=== PATIENT | male | born 1950 | race Caucasian/White ===

== ENCOUNTER 2020-07-30 07:16 | Day surgery (SDC) | payer MEDICARE, BC ==
[2020-07-23 15:21] LABS: BASOPHILS % (AUTO) 0.4 % (0-1); EOSINOPHILS % (AUTO) 0.4 % (0-6); LYMPHOCYTES # (AUTO) 1.2 X10'3 (1.1-4.8); LYMPHOCYTES % (AUTO) 11.3 % (21-51); MEAN CORPUSCULAR HEMOGLOBIN 29.6 PG (27.0-31.0); MEAN CORPUSCULAR HGB CONC 33.2 g/dL (33.0-36.5); MEAN CORPUSCULAR VOLUME 89.1 FL (78-98); MEAN PLATELET VOLUME 7.7 FL (7.4-10.4); MONOCYTES # (AUTO) 0.6 X10'3 (0-0.9); MONOCYTES % (AUTO) 5.5 % (2-12); NEUTROPHILS # (AUTO) 8.6 X10'3 (1.8-7.7); NEUTROPHILS % (AUTO) 82.4 % (42-75); PRE OP HEMATOCRIT 42.2 % (42.0-52.0); PRE OP PLATELET COUNT 222 X10'3 (140-440); RED BLOOD COUNT 4.74 X10'6 (4.70-6.10); RED CELL DISTRIBUTION WIDTH 15.3 % (11.5-14.5)
[2020-07-23 15:34] LABS: HEMOGLOBIN A1C 6.8 % (4.5-6.2)
[2020-07-23 15:35] LABS: PRE OP PROTIME 10.4 SECONDS (9.0-12.0)
[2020-07-23 15:37] LABS: ALBUMIN 3.9 G/DL (3.4-5.0); ALBUMIN/GLOBULIN RATIO 1.3 (1.1-1.5); ALKALINE PHOSPHATASE 70 IU/L (46-116); BLOOD UREA NITROGEN 22 MG/DL (7-18); BUN/CREATININE RATIO 13.7 (5.4-32.0); CALCIUM 9.4 MG/DL (8.5-10.1); CHLORIDE 106 MMOL/L (99-107); CREATININE 1.61 MG/DL (0.60-1.10); PRE OP ALT 56 U/L (30-65); PRE OP ANION GAP 6 (8-16); PRE OP AST 18 U/L (10-37); PRE OP BILIRUB, TOTAL 1.6 MG/DL (0.0-1.0); PRE OP GLUCOSE 127 MG/DL (70-104); PRE OP POTASSIUM 4.6 MMOL/L (3.4-5.1); PRE OP SODIUM 142 MMOL/L (135-145); TOTAL CARBON DIOXIDE 29.7 MMOL/L (24-32); TOTAL PROTEIN 6.9 G/DL (6.4-8.2); eGFR 43 ML/MIN
[2020-07-30] VITALS (18 sets, daily range): BP systolic 102–156; BP diastolic 55–102
[~2020-07-30] VITALS: Ht 177.8 cm; Wt 101.0 kg
[~2020-07-30 07:16] MED LIST: ASPI-611 PO; ATOR20TA66 PO; CHOL10006 PO; Cefazolin 2GM/100ML NS IVPB 100 ML IV ONE; DOCUMENT DATE & TIME OF BETA-BLOCKER PO ONE; HYDROmorphone 1 mg/ml syringe IV PRN; HYDROmorphone inj. 0.5 MG/0.5 ML DISP.SYRIN IV PRN; LORA-512 PO; METO200T49 PO; MULT-1085 PO; TELM80TA9 PO; WHEA98PO PO; acetaminophen 325mg tablet PO ONE; acetaminophen 325mg tablet PO PRN; bisacodyl 10mg suppository rectal RC PRN; celeCOXIB 100mg capsule PO ONE; diphenhydrAMINE 25mg capsule PO PRN; famotidine 20mg tablet PO ONE; gabapentin 300mg capsule PO ONE; loratadine 10mg tablet PO PRN; magnesium hydroxide 30ml (MOM) UD suspension PO PRN; metoclopramide 5 mg/ml inj IV ONE; ondansetron/PF 4mg/2ml inj IV PRN; oxyCODONE SR 10mg (sust. release) tab -2 tabs (20mg) PO ONE; oxyCODONE/APAP 10/325mg tablet PO PRN; ringers solution, lacted 1,000 ML IV SCH; tranexamic acid 1gm/0.7% sal. 100 ML IV ONE; vancomycin 1,500 MG in NS 300ml IV soln IV ONE
[2020-07-30] MEDS: ascorbic acid 500mg tablet PO SCH ×2 (08:00→20:51)
[2020-07-30] MEDS: multivitamins, therapeutics tablet PO SCH (08:00)
[2020-07-30] MEDS: gabapentin 300mg capsule PO SCH ×3 (08:00→20:51)
[2020-07-30] MEDS: aspirin 325mg tablet PO SCH (08:30)
[2020-07-30] MEDS ORDERED: fentaNYL/PF 50MCG/1 ML 2ML syringe ONE (11:00)
[2020-07-30] MEDS ORDERED: BUPIVAcaine 0.5% inj/PF 60 ML ONE (11:00)
[2020-07-30] MEDS ORDERED: MIDAZolam 1mg/ml 10ml vial ONE (11:00)
[2020-07-30] MEDS ORDERED: epiNEPHrine 1 mg/ml inj ONE (11:01)
[2020-07-30] MEDS ORDERED: cloNIDine hcl/PF 100mcg/ml inj ONE (11:01)
[2020-07-30] MEDS ORDERED: ketorolac trometh. 30mg/ml inj. ONE (11:01)
[2020-07-30] MEDS ORDERED: vancomycin 1,000mg inj ONE (11:16)
[2020-07-30] MEDS ORDERED: meperidine/PF 25mg/ml syringe IV PRN ×3 (11:55)
[2020-07-30] MEDS ORDERED: ringers solution, lacted 1,000 ML IV SCH (11:55)
[2020-07-30] MEDS ORDERED: morphine 4 MG/ML inj SYRINge IV PRN (11:55)
[2020-07-30] MEDS ORDERED: ROPIVAcaine 0.2% (10 MG/5 ML) BOLUS INJECTION ADDCANAL PRN (11:55)
[2020-07-30] MEDS ORDERED: ondansetron/PF 4mg/2ml inj IV PRN (11:55)
[2020-07-30] MEDS ORDERED: morphine 2 MG/ML inj. syringe IV PRN (11:55)
[2020-07-30] MEDS ORDERED: proCHLORperazine 10 MG/2 ml inj IV PRN (11:55)
[2020-07-30] MEDS ORDERED: ROPIVAcaine 0.5% (5mg/ml) 30ml vial ONE (12:16)
[2020-07-30] MEDS: ROPIVAcaine 0.2%/PF PUMP/bolus 550 ML ADDCANAL SCH ×2 (13:00→19:52)
--- NOTE | 2020-07-30 13:10 | NUR ---
PATIENT ARRIVED TO RECOVERY VIA BED WITH DR LIU, ANESTHESIA REPORT GIVEN, PATIENT AWAKE, DENIES PAIN, V/S WNL, NEUROVASCULAR CHECKS INTACT- + PULSES BLE, 18G PIV RUE , DRESSING TO LEFT KNEE CDI W/ COLD POWDER PACK AND RAUL DRSG W/ SCDS ON, ON-Q CATHETER PRESENT, SENSATION T-10
--- NOTE | 2020-07-30 14:30 | NUR ---
PATIENT A&OX4, DENIES PAIN, V/S WNL, NEUROVASCULAR CHECKS INTACT-SENSATION RETURNING TO RIGHT LOWER EXTREMITY-ABLE TO MOVE TOES, ABLE TO MOVE TOES ON LEFT SIDE BUT BLOCK STILL WORKING TO KEEP LEFT LEG SENSATION BLOCKED, + PULSES TO BLE, DRESSING TO LEFT KNEE W/ RAUL DRSG AND COLD POWDER PACK, ON-Q ATTACHED AND RUNNING AT 4ML/HR - PT EDUCATED ON USE, SCDS ON. PATIENT TAKEN TO RM 4015B WITH ALL BELONGINGS AND HOOKED UP TO MONITORS IN ROOM AND REPORT GIVEN TO RESIN REMOVER YASMINE WHO HAS TAKEN OVER PATIENT CARE. BED LOW AND LOCKED, CALL LIGHT PRESENT AND VSS.
[2020-07-30] MEDS: potassium cl 20mEq in 1/2 NS 1,000 ML IV SCH ×3 (15:15→23:15)
[2020-07-30] MEDS ORDERED: tranexamic acid 1gm/0.7% sal. 100 ML IV ONE ×2 (17:00→20:00)
[2020-07-30] MEDS: oxyCODONE/APAP 10/325mg tablet PO PRN (20:52)
[2020-07-30] MEDS ORDERED: sennosides 8.6mg tablet PO SCH (21:00)
[2020-07-30] MEDS ORDERED: atorvastatin 20mg tablet PO SCH (21:00)
[2020-07-30] MEDS ORDERED: VANCOMYCIN 1,500MG inj. 1,500 MG in normal saline 500ml IV soln 300 ML IV SCH (22:00)
[2020-07-31] MEDS: Cefazolin 2GM/100ML NS IVPB 100 ML IV SCH ×2 (00:03→08:36)
[2020-07-31 01:57] VITALS: BP 139/76
[2020-07-31] MEDS: oxyCODONE/APAP 10/325mg tablet PO PRN (05:21)
--- NOTE | 2020-07-31 05:30 | NUR ---
anticipate patient getting to go home today - pt still has very minimal pain.
[2020-07-31 06:00] VITALS: BP 142/81
[2020-07-31 06:48] LABS: BASOPHILS % (AUTO) 0.2 % (0-1); EOSINOPHILS % (AUTO) 0 % (0-6); HEMATOCRIT 38.6 % (42.0-52.0); HEMOGLOBIN 12.6 g/dl (14.0-17.9); LYMPHOCYTES # (AUTO) 0.9 X10'3 (1.1-4.8); LYMPHOCYTES % (AUTO) 6.1 % (21-51); MEAN CORPUSCULAR HEMOGLOBIN 29.5 PG (27.0-31.0); MEAN CORPUSCULAR HGB CONC 32.8 g/dL (33.0-36.5); MEAN CORPUSCULAR VOLUME 90.2 FL (78-98); MEAN PLATELET VOLUME 8.6 FL (7.4-10.4); MONOCYTES # (AUTO) 0.6 X10'3 (0-0.9); MONOCYTES % (AUTO) 4.2 % (2-12); NEUTROPHILS % (AUTO) 89.5 % (42-75); PLATELET COUNT 198 X10'3 (140-440); RED BLOOD COUNT 4.28 X10'6 (4.70-6.10); RED CELL DISTRIBUTION WIDTH 15.3 % (11.5-14.5); WHITE BLOOD COUNT 14.5 X10'3 (4.5-11.0)
--- NOTE | 2020-07-31 06:51 | NUR ---
Patient in room ORTHO 4015. I have received report from Immanuel REYNA and had the opportunity to ask questions and assume patient care.
[2020-07-31 07:05] LABS: ANION GAP 11 (8-16); CHLORIDE 106 MMOL/L (99-107); POTASSIUM 4.7 MMOL/L (3.5-5.1); SODIUM 140 MMOL/L (135-145); TOTAL CARBON DIOXIDE 22.9 MMOL/L (24-32)
[2020-07-31] MEDS: potassium cl 20mEq in 1/2 NS 1,000 ML IV SCH ×2 (07:11→07:12)
[2020-07-31] MEDS ORDERED: metoprolol succinate 25mg (24-HOUR) SR. Tablet PO SCH (08:00)
[2020-07-31] MEDS ORDERED: losartan 50mg tablet PO SCH (08:00)
[2020-07-31 08:30] VITALS: BP 142/78
[2020-07-31] MEDS: aspirin 325mg tablet PO SCH (08:36)
[2020-07-31] MEDS: gabapentin 300mg capsule PO SCH ×2 (08:37→12:50)
[2020-07-31] MEDS: multivitamins, therapeutics tablet PO SCH (08:37)
[2020-07-31] MEDS: ascorbic acid 500mg tablet PO SCH (08:38)
[2020-07-31 10:00] VITALS: BP 144/77
[2020-07-31] MEDS ORDERED: gabapentin capsule PO (11:52)
--- NOTE | 2020-07-31 12:28 | NUR ---
Joint replacement consult: Pt seen by ELODIA for written/verbal high protein ed w/ RD contact information provided. Pt declines additional proteins at this time reports appetite slightly lower than normal but good appetite at home without specific food preferences this AM. To provide initial assessment on above date. Addendum: 07/31/20 at [address] Amended: Links added.
--- NOTE | 2020-07-31 14:00 | NUR ---
Have been unable to process pt's d/c in computer system, system is locked up. pharmaceutical laboratory technician attempting to rectify. Pt and family aware. will continue to monitor.
--- NOTE | 2020-07-31 15:00 | NUR ---
Discharge paperwork is ready and reviewed with pt. Pt now waiting for /ride to return. Will continue to monitor.
--- NOTE | 2020-07-31 16:30 | NUR ---
Pt stable and appropriate for discharge. PIV d/c'd canula intact. Reviewed with pt all d/c instructions, meds, On-Q, RAUL dressing, with pt given opportunity to ask questions, answers provided and pt verbalizing understanding. Home meds returned to pt from Pharmacy. Pt to call surgeon with any questions, concerns or s/sx complications/infection or return to nearest ED. Pt escorted to front lobby by staff member via w/c with all personal belongings, accompanied by family. Driven home in private vehicle driven by family member.
[2020-07-31] MEDS ORDERED: celeCOXIB 100mg capsule PO SCH (20:00)
== END 2020-07-31 16:40 | disposition home or self-care (01) ==
LOC: PAS 07:16 → ORTHO 4S 16:09 → PAS 07-31 16:40
PROVIDERS: ATTEND Orthopaedic Surgery
DX: M17.12 Unilateral primary osteoarthritis, left knee (principal); E11.22 Type 2 diabetes mellitus with diabetic chronic kidney disease; I12.9 Hypertensive chronic kidney disease with stage 1 through stage 4 chronic kidney disease, or unspecified chronic kidney disease; N18.4 Chronic kidney disease, stage 4 (severe); G89.18 Other acute postprocedural pain; E66.9 Obesity, unspecified; Z68.31 Body mass index [BMI] 31.0-31.9, adult; Z87.891 Personal history of nicotine dependence; Z72.89 Other problems related to lifestyle; Z98.890 Other specified postprocedural states; Z88.8 Allergy status to other drugs, medicaments and biological substances; Z79.899 Other long term (current) drug therapy
CPT/HCPCS: 27447; 36415; 64448; 73560; 76937; 80051; 80053; 82948; 83036; 85025; 85610; 85730; 86885; 86900; 86901; 87081; 97110; 97116; 97162; 97530; C1713; C1776; J0171; J0690; J0735; J1885; J2250; J2765; J2795; J3010; J3370; J7040; J7120; A4215; A7000; G0378; J3480

== ENCOUNTER 2020-08-05 15:14 | Emergency (ER) | payer MEDICARE, BC ==
[~2020-08-05] VITALS: Ht 175.3 cm; Wt 102.3 kg
[~2020-08-05 15:14] MED LIST changes: -ASPI-611 PO; -Cefazolin 2GM/100ML NS IVPB 100 ML IV ONE; -DOCUMENT DATE & TIME OF BETA-BLOCKER PO ONE; -HYDROmorphone 1 mg/ml syringe IV PRN; -HYDROmorphone inj. 0.5 MG/0.5 ML DISP.SYRIN IV PRN; -acetaminophen 325mg tablet PO ONE; -acetaminophen 325mg tablet PO PRN; -bisacodyl 10mg suppository rectal RC PRN; -celeCOXIB 100mg capsule PO ONE; -diphenhydrAMINE 25mg capsule PO PRN; -famotidine 20mg tablet PO ONE; -gabapentin 300mg capsule PO ONE; -loratadine 10mg tablet PO PRN; -magnesium hydroxide 30ml (MOM) UD suspension PO PRN; -metoclopramide 5 mg/ml inj IV ONE; -ondansetron/PF 4mg/2ml inj IV PRN; -oxyCODONE SR 10mg (sust. release) tab -2 tabs (20mg) PO ONE; -oxyCODONE/APAP 10/325mg tablet PO PRN; -ringers solution, lacted 1,000 ML IV SCH; -tranexamic acid 1gm/0.7% sal. 100 ML IV ONE; -vancomycin 1,500 MG in NS 300ml IV soln IV ONE
[2020-08-05 16:53] LABS: BASOPHILS % (AUTO) 0.1 % (0-1); EOSINOPHILS # (AUTO) 0.1 X10'3 (0-0.9); EOSINOPHILS % (AUTO) 0.5 % (0-6); HEMATOCRIT 38.2 % (42.0-52.0); HEMOGLOBIN 12.5 g/dl (14.0-17.9); LYMPHOCYTES # (AUTO) 1.2 X10'3 (1.1-4.8); LYMPHOCYTES % (AUTO) 10.5 % (21-51); MEAN CORPUSCULAR HEMOGLOBIN 29.2 PG (27.0-31.0); MEAN CORPUSCULAR HGB CONC 32.7 g/dL (33.0-36.5); MEAN CORPUSCULAR VOLUME 89.2 FL (78-98); MEAN PLATELET VOLUME 8.3 FL (7.4-10.4); MONOCYTES # (AUTO) 0.5 X10'3 (0-0.9); MONOCYTES % (AUTO) 4.4 % (2-12); NEUTROPHILS # (AUTO) 9.5 X10'3 (1.8-7.7); NEUTROPHILS % (AUTO) 84.5 % (42-75); PLATELET COUNT 192 X10'3 (140-440); RED BLOOD COUNT 4.28 X10'6 (4.70-6.10); RED CELL DISTRIBUTION WIDTH 15.2 % (11.5-14.5); WHITE BLOOD COUNT 11.2 X10'3 (4.5-11.0)
[2020-08-05 17:04] LABS: ALANINE AMINOTRANSFERASE 197 U/L (12-78); ALBUMIN 3.2 G/DL (3.4-5.0); ALBUMIN/GLOBULIN RATIO 1.1 (1.1-1.5); ALKALINE PHOSPHATASE 69 IU/L (46-116); ANION GAP 11 (8-16); ASPARTATE AMINO TRANSFERASE 37 U/L (10-37); BILIRUBIN,TOTAL 1.2 MG/DL (0.1-1.0); BLOOD UREA NITROGEN 37 MG/DL (7-18); BUN/CREATININE RATIO 29.4 (5.4-32.0); CALCIUM 8.6 MG/DL (8.5-10.1); CHLORIDE 104 MMOL/L (99-107); CREATININE 1.26 MG/DL (0.60-1.10); GLUCOSE 125 MG/DL (70-104); POTASSIUM 4.1 MMOL/L (3.5-5.1); SODIUM 142 MMOL/L (135-145); TOTAL CARBON DIOXIDE 27.1 MMOL/L (24-32); eGFR 56 ML/MIN
[2020-08-05 18:46] VITALS: BP 165/91
== END 2020-08-05 18:53 | disposition home or self-care (01) ==
LOC: ER 15:15
DX: S80.12XA Contusion of left lower leg, initial encounter (principal); L76.82 Other postprocedural complications of skin and subcutaneous tissue; R60.0 Localized edema; Z72.89 Other problems related to lifestyle; Z79.899 Other long term (current) drug therapy; Z88.8 Allergy status to other drugs, medicaments and biological substances; X58.XXXA Exposure to other specified factors, initial encounter; Y93.9 Activity, unspecified; Y92.89 Other specified places as the place of occurrence of the external cause; Y99.8 Other external cause status
CPT/HCPCS: 36415; 71045; 80053; 83880; 84484; 85025; 93005; 93971; 99285

== ENCOUNTER 2021-10-07 09:03 | Inpatient (IN) | payer MEDICARE, BC ==
[~2021-10-07] VITALS: Ht 175.3 cm; Wt 99.3 kg
[2021-10-07 11:16] LABS: BASOPHILS % (AUTO) 0.5 % (0-1); EOSINOPHILS % (AUTO) 0.1 % (0-6); HEMATOCRIT 38.8 % (42.0-52.0); HEMOGLOBIN 12.6 g/dl (14.0-17.9); LYMPHOCYTES # (AUTO) 0.5 X10'3 (1.1-4.8); LYMPHOCYTES % (AUTO) 6.5 % (21-51); MEAN CORPUSCULAR HEMOGLOBIN 27.1 PG (27.0-31.0); MEAN CORPUSCULAR HGB CONC 32.6 g/dL (33.0-36.5); MEAN CORPUSCULAR VOLUME 83.2 FL (78-98); MEAN PLATELET VOLUME 8.2 FL (7.4-10.4); MONOCYTES # (AUTO) 0.3 X10'3 (0-0.9); MONOCYTES % (AUTO) 3.3 % (2-12); NEUTROPHILS # (AUTO) 6.9 X10'3 (1.8-7.7); NEUTROPHILS % (AUTO) 89.6 % (42-75); PLATELET COUNT 63 X10'3 (140-440); RED BLOOD COUNT 4.66 X10'6 (4.70-6.10); RED CELL DISTRIBUTION WIDTH 16.7 % (11.5-14.5); WHITE BLOOD COUNT 7.7 X10'3 (4.5-11.0)
[2021-10-07 11:33] LABS: UA COLLECTION TYPE VOIDED
[2021-10-07 11:34] LABS: CLARITY,URINE CLEAR (Clear); COLOR,URINE YELLOW (Yellow); GLUCOSE, URINE >=1000 mg/dl (Neg); KETONES,URINE NEGATIVE (Neg); LEUKOCYTE ESTERASE ,URINE NEGATIVE (Neg); NITRITES, URINE NEGATIVE (Neg); OCCULT BLOOD,URINE MODERATE (Neg); PROTEIN,URINE 30 mg/dl (Neg); UROBILINOGEN,URINE 0.2 E.U/dL (0.2-1.0)
[2021-10-07 11:39] LABS: ALANINE AMINOTRANSFERASE 57 U/L (12-78); ALBUMIN 3.1 G/DL (3.4-5.0); ALBUMIN/GLOBULIN RATIO 1.4 (1.1-1.5); ANION GAP 6 (8-16); ASPARTATE AMINO TRANSFERASE 21 U/L (10-37); BILIRUBIN,TOTAL 3.4 MG/DL (0.1-1.0); BLOOD UREA NITROGEN 27 MG/DL (7-18); BUN/CREATININE RATIO 16.2 (5.4-32.0); CALCIUM 7.9 MG/DL (8.5-10.1); CHLORIDE 100 MMOL/L (99-107); CREATININE 1.67 MG/DL (0.60-1.10); GLUCOSE 384 MG/DL (70-104); SODIUM 143 MMOL/L (135-145); TOTAL CARBON DIOXIDE 37.1 MMOL/L (24-32); TOTAL PROTEIN 5.3 G/DL (6.4-8.2); eGFR 41 ML/MIN
[2021-10-07 11:40] LABS: ALKALINE PHOSPHATASE 111 IU/L (46-116)
[2021-10-07 11:41] LABS: POTASSIUM 2.2 MMOL/L (3.5-5.1)
[2021-10-07 11:41] LABS: BACTERIA,URINE NONE SEEN /HPF (Neg); RBC,URINE 0-2 /HPF (0-2); SQUAMOUS EPITHELIAL CELL,UR FEW /LPF (FEW); WBC,URINE 0-4 /HPF (0-4)
--- NOTE | 2021-10-07 12:13 | NUR ---
Spoke with Norman GARZA regarding patients potassium level of 2.2, Norman GARZA gave verbal order for potassium effervescent 40 mEq once now. Isela TREJO aware of new order.
[2021-10-07] MEDS ORDERED: POTASSIUM BICARB 20meq eff tab 20 MEQ TABLET.EFF PO ONE (12:15)
[2021-10-07] MEDS ORDERED: potassium Cl 10 mEq/100mL bag IV ONE (13:05)
--- NOTE | 2021-10-07 13:34 | NUR ---
PT NOTED TO BE IN AFIB/FLUTTER RATE IN 140S. EDMD ALISHA MADE AWARE PULTZ WAS UNAVAILABLE
[2021-10-07] MEDS ORDERED: diltiazem 5mg/ml 5ml inj. IV ONE (13:45)
[2021-10-07] MEDS ORDERED: sotalol HCl 40mg (1/2 tablet) PO STA (13:46)
[2021-10-07] MEDS ORDERED: acetaminophen 325mg tablet PO PRN (14:00)
[2021-10-07] MEDS ORDERED: ondansetron/PF 4mg/2ml inj IV PRN (14:00)
[2021-10-07] MEDS ORDERED: magnesium Cl slow-release 64mg tablet PO PRN (14:00)
[2021-10-07] MEDS ORDERED: PERFLUTREN PROTEIN-A MICROSPHR (Optison) 0.22 MG/ML 3ML VIAL IV ONE (14:00)
[2021-10-07] MEDS ORDERED: magnesium 4gm in 100ml NS 100 ML IV PRN (14:00)
[2021-10-07] MEDS ORDERED: magnesium 2GM in 50ml NS 50 ML IV PRN (14:00)
[2021-10-07] MEDS ORDERED: POTASSIUM BICARB 20meq eff tab 20 MEQ TABLET.EFF PO PRN (14:00)
[2021-10-07] MEDS ORDERED: magnesium hydroxide 30ml (MOM) UD suspension PO PRN (14:00)
[2021-10-07] MEDS ORDERED: mag hydrox/Alum hydrox/simeth 30ml oral suspension PO PRN (14:00)
[2021-10-07 14:16] LABS: MAGNESIUM 2.2 MG/DL (1.5-2.4)
[2021-10-07] MEDS ORDERED: METO-539 PO (16:32)
[2021-10-07] MEDS ORDERED: ATOR20TA66 PO (16:32)
[2021-10-07] MEDS ORDERED: POTA10TA37 PO (16:32)
[2021-10-07] MEDS ORDERED: DOXA4TAB3 PO (16:32)
[2021-10-07] MEDS ORDERED: FURO-150 PO (16:32)
[2021-10-07 17:08] LABS: POTASSIUM 2.2 MMOL/L (3.5-5.1)
[2021-10-07] MEDS: potassium CL 10mEq/100ml bag 100 ML IV PRN ×2 (17:41→19:32)
[2021-10-07] MEDS: POTASSIUM BICARB 20meq eff tab 20 MEQ TABLET.EFF PO PRN ×2 (17:41→22:01)
--- NOTE | 2021-10-07 17:44 | NUR ---
DEMETRIS AT BEDSIDE. INFORMED OF HTN AND POTASSIUM STILL LOW AT 2.2. ADIVSED TO GIVE BOTH ORAL AND IV REPLACEMENT AND TO GET A MAGNESIUM LEVEL. BOTH K REPLACEMENT GIVEN ADVISED AND MG ORDERED
[2021-10-07 17:52] LABS: MAGNESIUM 2.1 MG/DL (1.5-2.4)
[2021-10-07] MEDS: furosemide 10 MG/1 ML 10ml inj IV SCH (18:00)
--- NOTE | 2021-10-07 18:48 | NUR ---
Received report from AXEL Haddad. Awaiting patient arrival to the floor.
--- NOTE | 2021-10-07 19:05 | NUR ---
Patient arrived to the floor via wheelchair. Placed in room 3016B. Patient alert and oriented x4 on room air, in no apparent distress. Call light and items of frequent use.
[2021-10-07 19:10] VITALS: BP 185/98
[2021-10-07] MEDS: hydrALAZINE 20mg/ml inj. IV PRN (19:31)
[2021-10-07] MEDS: docusate sod 100mg capsule PO SCH (19:37)
[2021-10-07] MEDS: K and/or MAG REPLACEMENT MC SCH (19:38)
[2021-10-07 20:42] VITALS: BP 152/83
[2021-10-07 22:00] VITALS: BP 154/87
[2021-10-08] VITALS (7 sets, daily range): BP systolic 147–178; BP diastolic 79–100
[2021-10-08] MEDS: POTASSIUM BICARB 20meq eff tab 20 MEQ TABLET.EFF PO PRN ×2 (02:37→19:55)
--- NOTE | 2021-10-08 06:00 | NUR ---
Patient in room PCU 3016. I have received report from Susanna REYNA and had the opportunity to ask questions and assume patient care.
--- NOTE | 2021-10-08 06:20 | NUR ---
Problems reprioritized. Patient report given, questions answered & plan of care reviewed with AXEL Garzon.
[2021-10-08 06:49] LABS: BASOPHILS % (AUTO) 0.1 % (0-1); EOSINOPHILS % (AUTO) 0.1 % (0-6); LYMPHOCYTES # (AUTO) 0.9 X10'3 (1.1-4.8); MEAN CORPUSCULAR HEMOGLOBIN 27.4 PG (27.0-31.0); MEAN CORPUSCULAR HGB CONC 33.2 g/dL (33.0-36.5); MEAN CORPUSCULAR VOLUME 82.5 FL (78-98); MEAN PLATELET VOLUME 8.2 FL (7.4-10.4); MONOCYTES # (AUTO) 0.3 X10'3 (0-0.9); MONOCYTES % (AUTO) 4.5 % (2-12); NEUTROPHILS # (AUTO) 5.3 X10'3 (1.8-7.7); NEUTROPHILS % (AUTO) 81.3 % (42-75); PLATELET COUNT 56 X10'3 (140-440); RED BLOOD COUNT 4.36 X10'6 (4.70-6.10); RED CELL DISTRIBUTION WIDTH 17.2 % (11.5-14.5); WHITE BLOOD COUNT 6.5 X10'3 (4.5-11.0)
[2021-10-08 07:00] LABS: ALBUMIN 2.6 G/DL (3.4-5.0); ANION GAP 4 (8-16); BLOOD UREA NITROGEN 25 MG/DL (7-18); BUN/CREATININE RATIO 16.1 (5.4-32.0); CALCIUM 7.8 MG/DL (8.5-10.1); CHLORIDE 104 MMOL/L (99-107); CREATININE 1.55 MG/DL (0.60-1.10); GLUCOSE 247 MG/DL (70-104); MAGNESIUM 2.1 MG/DL (1.5-2.4); SODIUM 146 MMOL/L (135-145); TOTAL CARBON DIOXIDE 38.4 MMOL/L (24-32); eGFR 44 ML/MIN
[2021-10-08 07:12] LABS: POTASSIUM 2.6 MMOL/L (3.5-5.1)
--- NOTE | 2021-10-08 07:25 | NUR ---
Paged Dr. Neri regarding pts critical K level of 2.6 PAGER ID: [phone] MESSAGE: [id number], Ashley Gonzalez. Pts K+ is 2.6. They have mad multiple replacements and its still low. Do you want to continue the protocol or would you like to add scheduled? Ryann [facility] [id number]
[2021-10-08] MEDS: furosemide 10 MG/1 ML 10ml inj IV SCH ×2 (07:57→20:32)
[2021-10-08] MEDS: potassium Cl 20 mEq SR tablet PO SCH ×2 (07:58→20:33)
[2021-10-08] MEDS: potassium CL 10mEq/100ml bag 100 ML IV PRN ×5 (07:59→15:26)
[2021-10-08] MEDS: docusate sod 100mg capsule PO SCH ×2 (07:59→20:33)
[2021-10-08] MEDS: K and/or MAG REPLACEMENT MC SCH ×2 (08:00→20:00)
[2021-10-08 11:37] LABS: HEMOGLOBIN A1C 7.6 % (4.5-6.2)
--- NOTE | 2021-10-08 18:20 | NUR ---
Patient in room PCU 3016. I have received report from Ryann and had the opportunity to ask questions and assume patient care.
--- NOTE | 2021-10-08 18:29 | NUR ---
Problems reprioritized. Patient report given, questions answered & plan of care reviewed with Sandra Irvin, patient stable at transfer of care.
[2021-10-08] MEDS: hydrALAZINE 20mg/ml inj. IV PRN (20:33)
--- NOTE | 2021-10-08 20:51 | NUR ---
Called Dr. Greer regarding BS of 315. Order received for [facility] BS checks with Humalog coverage only.
[2021-10-08] MEDS ORDERED: dextrose 50%-water 50ml dispensing syringe IV PRN ×2 (22:15)
[2021-10-08] MEDS ORDERED: DEXTROSE 15 GM of carb/4 tabs (each vial/BOTTLE has 4 tablets) PO PRN ×2 (22:15)
[2021-10-09 02:00] VITALS: BP 179/91
[2021-10-09] MEDS: hydrALAZINE 20mg/ml inj. IV PRN (03:16)
[2021-10-09] MEDS: POTASSIUM BICARB 20meq eff tab 20 MEQ TABLET.EFF PO PRN (05:31)
[2021-10-09 06:50] LABS: BASOPHILS % (AUTO) 0.1 % (0-1); EOSINOPHILS % (AUTO) 0.1 % (0-6); HEMATOCRIT 39.6 % (42.0-52.0); HEMOGLOBIN 13.2 g/dl (14.0-17.9); LYMPHOCYTES # (AUTO) 0.9 X10'3 (1.1-4.8); LYMPHOCYTES % (AUTO) 16.3 % (21-51); MEAN CORPUSCULAR HEMOGLOBIN 27.3 PG (27.0-31.0); MEAN CORPUSCULAR HGB CONC 33.3 g/dL (33.0-36.5); MEAN CORPUSCULAR VOLUME 82.2 FL (78-98); MEAN PLATELET VOLUME 8.4 FL (7.4-10.4); MONOCYTES # (AUTO) 0.3 X10'3 (0-0.9); MONOCYTES % (AUTO) 4.9 % (2-12); NEUTROPHILS # (AUTO) 4.5 X10'3 (1.8-7.7); NEUTROPHILS % (AUTO) 78.6 % (42-75); PLATELET COUNT 58 X10'3 (140-440); RED BLOOD COUNT 4.82 X10'6 (4.70-6.10); RED CELL DISTRIBUTION WIDTH 17.3 % (11.5-14.5); WHITE BLOOD COUNT 5.8 X10'3 (4.5-11.0)
[2021-10-09 06:53] VITALS: BP 163/93
[2021-10-09 06:53] LABS: ALANINE AMINOTRANSFERASE 54 U/L (12-78); ALBUMIN 2.9 G/DL (3.4-5.0); ALBUMIN/GLOBULIN RATIO 1.5 (1.1-1.5); ALKALINE PHOSPHATASE 110 IU/L (46-116); ANION GAP -2 (8-16); ASPARTATE AMINO TRANSFERASE 22 U/L (10-37); BLOOD UREA NITROGEN 25 MG/DL (7-18); BUN/CREATININE RATIO 15.1 (5.4-32.0); CHLORIDE 105 MMOL/L (99-107); CREATININE 1.66 MG/DL (0.60-1.10); GLUCOSE 219 MG/DL (70-104); POTASSIUM 3.6 MMOL/L (3.5-5.1); SODIUM 141 MMOL/L (135-145); TOTAL PROTEIN 4.9 G/DL (6.4-8.2); eGFR 41 ML/MIN
[2021-10-09 07:41] LABS: BILIRUBIN,TOTAL 3.5 MG/DL (0.1-1.0)
[2021-10-09] MEDS: docusate sod 100mg capsule PO SCH ×2 (08:00→19:54)
[2021-10-09] MEDS: K and/or MAG REPLACEMENT MC SCH ×2 (08:00→20:01)
--- NOTE | 2021-10-09 09:42 | NUR ---
Noted pt with A1c 7.6%. Per EMR this admit pt with prediabetes however per two previous visits pt documented with T2DM. Written DM education with RD contact information placed in patient's chart. Will remain available. Addendum: 10/09/21 at [address] Amended: Links added.
[2021-10-09] MEDS: potassium Cl 20 mEq SR tablet PO SCH ×3 (09:48→19:54)
[2021-10-09] MEDS: furosemide 10 MG/1 ML 10ml inj IV SCH ×2 (09:48→17:45)
--- NOTE | 2021-10-09 10:32 | NUR ---
Extensive diabetic education by primary RN given to pt. on DM dx. Pt. would like to stop going to walk-in clinic in [place] and would like to find a PCP here in [place]. Spoke with CM for resources and she states she will speak to him and refer him to [facility].
[2021-10-09 10:57] VITALS: BP 125/45
[2021-10-09] MEDS: insulin Lispro (HumaLOG) vial - multi-dose SQ SCH ×2 (13:41→19:58)
--- NOTE | 2021-10-09 15:06 | NUR ---
RN TC: Pt A1C 7.6% and though prior admits say hx T2DM in EMR pt/ actually not aware of DM until this admit and have been notified by MD. Pt/ seen by RD at bedside for thorough written/verbal DM ed w/ RD contact information provided. RD encouraged pt/ to contact dietitian's office if further questions/concerns. Pt admit DX acute CHF exacerbation, new onset afib, HTN, hyperglycemia, transaminitis, and severe hypokalemia receiving replacement per EMR. Glu 207mg/dl this afternoon down from 315mg/dl on admit started on humalog per EMR; RD d/w RN regarding glycemic protocol if physician agreeable. PO ~100% avg initial carb controlled meals meeting estimated needs. No documented BM though day two of admit per EMR. Will continue to monitor for further nutrition intervention needs this admit. Rec: 1. continue carb controlled diet 2. routine bowel care 3. weekly wts Addendum: 10/09/21 at [address] Amended: Links added.
[2021-10-09 15:31] LABS: HBSAG SCREEN Negative (Negative); HEP A AB, IGM Negative (Negative); HEPATITIS C ANTIBODY <0.1 s/co ratio (0.0-0.9)
[2021-10-09 15:43] VITALS: BP 149/80
[2021-10-09 18:00] VITALS: BP 166/97
--- NOTE | 2021-10-09 18:15 | NUR ---
Patient in room PCU 3016. I have received report from Aysha and had the opportunity to ask questions and assume patient care.
--- NOTE | 2021-10-09 18:26 | NUR ---
GAVE REPORT TO FER REYNA
[2021-10-09] MEDS: doxazosin mesylate 2mg tablet PO SCH (19:54)
[2021-10-09 22:00] VITALS: BP 159/96
[2021-10-10 02:00] VITALS: BP 165/93
[2021-10-10 06:00] VITALS: BP 157/91
--- NOTE | 2021-10-10 06:10 | NUR ---
Problems reprioritized. Patient report given, questions answered & plan of care reviewed with Jane.
[2021-10-10 07:02] LABS: BASOPHILS % (AUTO) 0.2 % (0-1); EOSINOPHILS % (AUTO) 0.1 % (0-6); HEMATOCRIT 38.1 % (42.0-52.0); HEMOGLOBIN 12.9 g/dl (14.0-17.9); LYMPHOCYTES # (AUTO) 0.9 X10'3 (1.1-4.8); LYMPHOCYTES % (AUTO) 16.6 % (21-51); MEAN CORPUSCULAR HEMOGLOBIN 28.1 PG (27.0-31.0); MEAN CORPUSCULAR HGB CONC 33.9 g/dL (33.0-36.5); MEAN CORPUSCULAR VOLUME 82.9 FL (78-98); MEAN PLATELET VOLUME 8.2 FL (7.4-10.4); MONOCYTES # (AUTO) 0.3 X10'3 (0-0.9); MONOCYTES % (AUTO) 4.7 % (2-12); NEUTROPHILS # (AUTO) 4.1 X10'3 (1.8-7.7); NEUTROPHILS % (AUTO) 78.4 % (42-75); PLATELET COUNT 59 X10'3 (140-440); RED BLOOD COUNT 4.59 X10'6 (4.70-6.10); RED CELL DISTRIBUTION WIDTH 17.9 % (11.5-14.5); WHITE BLOOD COUNT 5.3 X10'3 (4.5-11.0)
[2021-10-10 07:05] LABS: ALBUMIN 2.8 G/DL (3.4-5.0); ANION GAP 5 (8-16); BLOOD UREA NITROGEN 29 MG/DL (7-18); BUN/CREATININE RATIO 17.1 (5.4-32.0); CALCIUM 7.9 MG/DL (8.5-10.1); CHLORIDE 105 MMOL/L (99-107); GLUCOSE 152 MG/DL (70-104); MAGNESIUM 1.9 MG/DL (1.5-2.4); SODIUM 145 MMOL/L (135-145); TOTAL CARBON DIOXIDE 35.1 MMOL/L (24-32); eGFR 40 ML/MIN
[2021-10-10] MEDS: metoprolol succinate 25mg (24-HOUR) SR. Tablet PO SCH (07:43)
[2021-10-10] MEDS: furosemide 10 MG/1 ML 10ml inj IV SCH ×2 (07:43→19:54)
[2021-10-10] MEDS: potassium Cl 20 mEq SR tablet PO SCH (07:44)
[2021-10-10] MEDS: docusate sod 100mg capsule PO SCH ×2 (08:00→19:39)
[2021-10-10] MEDS: K and/or MAG REPLACEMENT MC SCH ×2 (08:00→20:00)
[2021-10-10] MEDS ORDERED: potassium Cl 20 mEq SR tablet PO STA (08:47)
[2021-10-10] MEDS: insulin Lispro (HumaLOG) vial - multi-dose SQ SCH ×3 (09:15→19:31)
[2021-10-10 10:50] LABS: POTASSIUM 3.2 MMOL/L (3.5-5.1)
[2021-10-10 11:00] VITALS: BP 138/84
[2021-10-10 13:17] LABS: BILIRUBIN,DIRECT 0.4 MG/DL (0-0.3)
[2021-10-10 15:00] VITALS: BP 149/79
[2021-10-10 18:00] VITALS: BP 154/86
--- NOTE | 2021-10-10 18:30 | NUR ---
Patient in room PCU 3016. I have received report from JOHAN and had the opportunity to ask questions and assume patient care.
[2021-10-10] MEDS: K, MAG and/or Phos replacement - Verify level? MC SCH (19:50)
[2021-10-10] MEDS ORDERED: magnesium 2GM in 50ml NS 50 ML IV PRN (19:50)
[2021-10-10] MEDS ORDERED: magnesium 4gm in 100ml NS 100 ML IV PRN (19:50)
[2021-10-10] MEDS ORDERED: magnesium Cl slow-release 64mg tablet PO PRN (19:50)
[2021-10-10] MEDS ORDERED: potassium Cl 20 mEq SR tablet PO PRN (19:50)
[2021-10-10] MEDS: potassium Cl 20 mEq SR tablet PO PRN (20:01)
[2021-10-10] MEDS: doxazosin mesylate 2mg tablet PO SCH (21:29)
[2021-10-10 22:00] VITALS: BP 152/77
[2021-10-11] MEDS: potassium Cl 20 mEq SR tablet PO PRN (00:57)
[2021-10-11 02:00] VITALS: BP 143/87
[2021-10-11 06:22] LABS: BASOPHILS % (AUTO) 0.1 % (0-1); EOSINOPHILS % (AUTO) 0 % (0-6); HEMOGLOBIN 12.7 g/dl (14.0-17.9); LYMPHOCYTES # (AUTO) 0.7 X10'3 (1.1-4.8); LYMPHOCYTES % (AUTO) 9.7 % (21-51); MEAN CORPUSCULAR HEMOGLOBIN 27.7 PG (27.0-31.0); MEAN CORPUSCULAR HGB CONC 33.6 g/dL (33.0-36.5); MEAN CORPUSCULAR VOLUME 82.4 FL (78-98); MEAN PLATELET VOLUME 8.4 FL (7.4-10.4); MONOCYTES # (AUTO) 0.2 X10'3 (0-0.9); MONOCYTES % (AUTO) 3.3 % (2-12); NEUTROPHILS # (AUTO) 6.4 X10'3 (1.8-7.7); NEUTROPHILS % (AUTO) 86.9 % (42-75); PLATELET COUNT 60 X10'3 (140-440); RED CELL DISTRIBUTION WIDTH 17.6 % (11.5-14.5); WHITE BLOOD COUNT 7.4 X10'3 (4.5-11.0)
--- NOTE | 2021-10-11 06:35 | NUR ---
Problems reprioritized. Patient report given, questions answered & plan of care reviewed with
[2021-10-11 06:36] LABS: ALBUMIN 2.7 G/DL (3.4-5.0); ANION GAP 3 (8-16); BLOOD UREA NITROGEN 37 MG/DL (7-18); BUN/CREATININE RATIO 18.9 (5.4-32.0); CALCIUM 7.8 MG/DL (8.5-10.1); CHLORIDE 105 MMOL/L (99-107); CREATININE 1.96 MG/DL (0.60-1.10); GLUCOSE 155 MG/DL (70-104); POTASSIUM 3.4 MMOL/L (3.5-5.1); SODIUM 143 MMOL/L (135-145); TOTAL CARBON DIOXIDE 35.4 MMOL/L (24-32); eGFR 34 ML/MIN
[2021-10-11 07:17] VITALS: BP 159/87
[2021-10-11] MEDS: docusate sod 100mg capsule PO SCH (08:00)
[2021-10-11] MEDS: K, MAG and/or Phos replacement - Verify level? MC SCH (08:00)
[2021-10-11] MEDS: K and/or MAG REPLACEMENT MC SCH (08:00)
[2021-10-11] MEDS: metoprolol succinate 25mg (24-HOUR) SR. Tablet PO SCH (08:27)
[2021-10-11] MEDS: furosemide 10 MG/1 ML 10ml inj IV SCH (08:28)
[2021-10-11] MEDS: potassium Cl 20 mEq SR tablet PO SCH (08:28)
[2021-10-11] MEDS: insulin Lispro (HumaLOG) vial - multi-dose SQ SCH (08:52)
[2021-10-11] MEDS ORDERED: GLIP2.5T3 PO (09:53)
[2021-10-11] MEDS ORDERED: FURO40TA4 PO (09:53)
[2021-10-11] MEDS ORDERED: POTA-207 PO (09:53)
--- NOTE | 2021-10-11 13:31 | NUR ---
Patient seen by DR Neri, is for discharge. up and about in room.VSS. All DC instructions given to patient and spouse. Education laurence on Diabetes mellitus. Prescription called into [facility] on [address]. patient is a patient at [facility] so [facility] staff had to cancel meds transmitted to [facility] in order for patient to recieve meds. patient DC home via private car with spouse in stable condition.
== END 2021-10-11 11:38 | disposition home or self-care (01) | DRG 291 ==
LOC: ER 09:03 → ED HOLD 14:02 → PCU 3S 18:58
PROVIDERS: ADMIT Family Medicine; ATTEND Family Medicine
DX: I13.0 Hypertensive heart and chronic kidney disease with heart failure and stage 1 through stage 4 chronic kidney disease, or unspecified chronic kidney disease (principal); I50.33 Acute on chronic diastolic (congestive) heart failure; R17 Unspecified jaundice; E11.22 Type 2 diabetes mellitus with diabetic chronic kidney disease; N18.9 Chronic kidney disease, unspecified; D69.6 Thrombocytopenia, unspecified; I48.91 Unspecified atrial fibrillation; E87.6 Hypokalemia; Z88.8 Allergy status to other drugs, medicaments and biological substances; Z79.899 Other long term (current) drug therapy
CPT/HCPCS: 36415; 71045; 76700; 80048; 80053; 81001; 82248; 82948; 83036; 83735; 83880; 84132; 84484; 85025; 86709; 86803; 87081; 87340; 93306; 96365; 97161; 97530; 99285; G0378; J0360; J1815; J1940; J3480; J7030; J7040; J7050